=== PATIENT | female | born 1950 | race Caucasian/White ===

== ENCOUNTER → 2016-04-25 | Outpatient (CLI) | payer OTHER ==
--- NOTE | 2016-04-25 12:19 | MA ---
Diagnostic Bilateral Digital Mammogram With Tomosynthesis Clinical Indications: Left breast lump history of mastitis beginning of March 2016 Technique: Standard digital cephalocaudal and tomosynthesis mediolateral oblique projections were ob tained. The digital images were processed by the [employer] computer aided detection system. Comparison: July 2011 and May 2008. Breast density: D; The breast tissue is extremely dense. This may lower the sensitivity of mammograph y. Findings: CAD was reviewed. No suspicious findings are identified in either breast. Specifically no abnormality in the upper outer portion of the left breast.. Impression: Negative mammography with a palpable lump. Further imaging of the palpable lump in the up per outer left breast with ultrasound, which will be performed shortly.. BI-RADS 0. Further imaging with ultrasound. [facility] will send a result letter to the patient. Negative mammography should not preclude additional workup of a clinically suspicious finding. The patient's information is entered into a reminder system with a target due date for her next mammo gram.
--- NOTE | 2016-04-25 13:02 | US ---
Left Breast Ultrasound, complete History: Thickening upper outer left breast post mastitis in March 2016 treated with antibiotics Comparison: Diagnostic mammogram earlier Technique: I first performed a directed physical examination. This was followed by ultrasound exam with a high frequency linear transducer. Findings: Physical examination of the upper outer left breast reveals some radially oriented bridges of tissue. No discrete masses identified. Physical examination of the left axilla was negative. On ul trasound there are benign prominent ducts with atelectatic dilated ducts in the outer quadrant. There are no ductal filling defects. There is no hypervascularity on color Doppler analysis. In the left a xilla is a single small reactive lymph node measuring 4 mm. No pathological adenopathy is identified. Impression: No evidence for left breast malignancy. No evidence for breast abscess. BI-RADS 2. Benign. Results and recommendation were discussed in detail with the patient. Screening mammography is recomm ended in one year.
== END ==
LOC: FIMAGING 11:37
PROVIDERS: ATTEND Internal Medicine
DX: Z12.39 Encounter for other screening for malignant neoplasm of breast (principal); N63 Unspecified lump in breast
CPT/HCPCS: G0204; G0279

== ENCOUNTER → 2018-06-16 | Outpatient (CLI) | payer OTHER, MEDICARE | LOC: FIMAGING 12:31 | PROVIDERS: ATTEND Internal Medicine | DX: Z12.31 Encounter for screening mammogram for malignant neoplasm of breast (principal) ==